=== PATIENT | male | born 1990 | race Caucasian/White ===

== ENCOUNTER 2018-08-25 12:56 | Emergency (ER) | payer SELFPAY ==
[~2018-08-25] VITALS: Wt 94.3 kg
[2018-08-25 12:59] VITALS: BP 140/82; PULSE 78; RESP 18
[2018-08-25] MEDS ORDERED: ONDANSETRON (ODT) 4 MG TAB ODT STA (13:54)
[2018-08-25] MEDS ORDERED: CYCL10TA7 PO (13:56)
[2018-08-25] MEDS ORDERED: NAPR-985 PO (13:56)
[2018-08-25] MEDS ORDERED: HYDR-4011 PO (13:56)
[2018-08-25] MEDS ORDERED: HYDROCODONE/APAP (5/325) TAB PO ONE (14:00)
--- NOTE | 2018-08-25 14:35 | ERD ---
ER Documentation Chief Complaint Chief Complaint fell yesterday , corona neck pain HPI 27-year-old male presenting with neck pain. Patient fell off of 8 foot ladder and fell on the ground. He states it was a firm surface. He denies any headaches. He states he has some pain in his neck his lower back predominantly on the right side with no midline tenderness. Patient has not taken medications for pain. Denies any numbness or tingling. Denies other medical problems. NKDA. Surgical history appendectomy. Social history denies ROS All systems reviewed and are negative except as per history of present illness. Medications Home Meds Active Scripts Naproxen* (Naprosyn*) 500 Mg Tablet, 500 MG PO BID PRN for PAIN AND/OR INFLAMMATION, #30 TAB Prov:MARGARITA SNYDER PA-C 08/25/18 Cyclobenzaprine Hcl* (Cyclobenzaprine Hcl*) 10 Mg Tablet, 10 MG PO TID, #15 TAB Prov:MARGARITA SNYDER PA-C 08/25/18 Hydrocodone/Acetaminophen (Cushman 5-325 Tablet) 1 Each Tablet, 1 TAB PO Q6H PRN for PAIN, #7 TAB Prov:MARGARITA SNYDER PA-C 08/25/18 PMhx/Soc Medical and Surgical Hx: pt denies Medical Hx, pt denies Surgical Hx FmHx Family History: No diabetes, No coronary disease, No other Physical Exam Vitals Vital Signs Date Temp Pulse Resp B/P (MAP) Pulse Ox O2 O2 Flow FiO2 Time Delivery Rate 08/25/18 97.8 78 18 140/82 99 12:59 (101) Physical Exam GENERAL: The patient is well-appearing, well-nourished, in no acute distress NECK: C-spine is soft and supple. There is no meningismus. There is no cervical lymphadenopathy. No tenderness to palpation over the right paraspinous muscles of the cervical spine. No midline tenderness. CHEST: Clear to auscultation bilaterally. There are no rales, wheezes or rhonchi. HEART: Regular rate and rhythm. No murmurs, clicks, rubs or gallops. BACK: No midline or flank tenderness. Tender to palpation of the right paraspinous muscles. No midline tenderness. EXTREMITIES: Equal pulses bilaterally. There is no peripheral clubbing, cyanosis or edema. No focal swelling or erythema. Full range of motion. Grossly neurovascularly intact. NEUROLOGIC: Alert and oriented. Cranial nerves II through XII intact. Motor strength in all 4 extremities with 5 out of 5 strength. Sensation grossly intact. Normal speech and gait. Results 24 hrs Current Medications Medications Dose Sig/Suzanna Start Time Status Last (Trade) Ordered Route PRN Stop Time Admin Dose Reason Admin 1 tab ONCE ONCE 08/25/18 DC 08/25/18 Acetaminophen PO 14:00 08/25/18 14:05 / 14:01 Hydrocodone Bitart (Cushman (5/325)) Ondansetron 4 mg ONCE STAT 08/25/18 DC 08/25/18 HCl (Zofran ODT 13:54 08/25/18 14:04 Odt) 13:55 Procedures/MDM ER course: Cushman and Zofran given to ED. MDM: 27-year-old male presenting with back pain. I have low suspicion for fracture dislocation. I do not feel x-rays are indicated. Patient's pain is located over the muscular region is likely due to spasm and strain. Patient is told symptoms change or worsen to return immediately to the ER. Patient is recommended to follow-up with primary care. All questions answered at discharge Departure Diagnosis: Primary Impression: Fall Condition: Stable Patient Instructions: Fall, Mechanical Referrals: COMM[facility] YOU HAVE RECEIVED A MEDICAL SCREENING EXAM AND THE RESULTS INDICATE THAT YOU DO NOT HAVE A CONDITION THAT REQUIRES URGENT TREATMENT IN THE EMERGENCY DEPARTMENT. FURTHER EVALUATION AND TREATMENT OF YOUR CONDITION CAN WAIT UNTIL YOU ARE SEEN IN YOUR DOCTORS OFFICE WITHIN THE NEXT 1-2 DAYS. IT IS YOUR RESPONSIBILITY TO MAKE AN APPOINTMENT FOR FOLOW-UP CARE. IF YOU HAVE A PRIMARY DOCTOR --you should call your primary doctor and schedule an appointment IF YOU DO NOT HAVE A PRIMARY DOCTOR YOU CAN CALL OUR PHYSICIAN REFERRAL HOTLINE AT IF YOU CAN NOT AFFORD TO SEE A PHYSICIAN YOU CAN CHOSE FROM THE FOLLOWING [facility] [address] [facility] [address] [facility] [address] [facility] [address] [facility] [address] [facility]. [facility] [address] Additional Instructions: FOLLOW UP WITH YOUR PRIMARY CARE PHYSICIAN TOMORROW.Return to this facility if you are not improving as expected. MARGARITA SNYDER PA-C August 25, 2018 14:35
== END 2018-08-25 14:10 | disposition home or self-care (01) ==
LOC: FTE 12:56
DX: M54.5 Low back pain (principal); M54.2 Cervicalgia
CPT/HCPCS: 99283